=== PATIENT | male | born 1980 | race Caucasian/White ===

== ENCOUNTER 2016-06-21 07:01 | Inpatient (IN) | payer BC ==
[~2016-06-21] VITALS: Ht 170.2 cm; Wt 77.1 kg
[2016-06-21 08:05] LABS: HEMOGLOBIN 15.7 gm/dl (14.0-17.5); RED BLOOD COUNT 5.11 M/UL (4.20-5.50)
[2016-06-21 08:10] LABS: BUN/CREATININE RATIO 19 (0-10)
[2016-06-21] MEDS ORDERED: WELLBUTRIN XL300 M1 PO (13:17)
[2016-06-21] MEDS ORDERED: KLONOPIN TAB 00.5 MG PO (13:18)
[2016-06-22 04:39] LABS: WHITE BLOOD COUNT 7.9 K/UL (4.5-11.0)
[2016-06-22 04:40] LABS: HEMOGLOBIN 12.2 gm/dl (14.0-17.5); RED BLOOD COUNT 4.04 M/UL (4.20-5.50)
[2016-06-22 05:01] LABS: BUN/CREATININE RATIO 15 (0-10)
== END 2016-06-22 15:30 | disposition home or self-care (01) | DRG 389 ==
LOC: ER1 07:01 → ZEROF 12:00 → MED SURG 4 13:24
PROVIDERS: Emergency Medicine; ADMIT Internal Medicine
DX: K56.60 Unspecified intestinal obstruction (principal); M62.82 Rhabdomyolysis; F32.9 Major depressive disorder, single episode, unspecified; F41.9 Anxiety disorder, unspecified; Z90.49 Acquired absence of other specified parts of digestive tract; F17.220 Nicotine dependence, chewing tobacco, uncomplicated; D51.0 Vitamin B12 deficiency anemia due to intrinsic factor deficiency; Z79.899 Other long term (current) drug therapy; Z86.19 Personal history of other infectious and parasitic diseases; Z28.21 Immunization not carried out because of patient refusal; Z82.49 Family history of ischemic heart disease and other diseases of the circulatory system; Z83.3 Family history of diabetes mellitus; Z83.49 Family history of other endocrine, nutritional and metabolic diseases; Z82.61 Family history of arthritis
CPT/HCPCS: 36415; 74000; 80053; 81001; 82550; 82553; 82607; 83690; 83874; 84484; 85025; 86140; 93005; 96361; 96374; 96375; 96376; 99285; C9113; J1885; J2270; J2405; J3420; J7030; J7050; Q9962